=== PATIENT | male | born 1980 | race Caucasian/White ===

== ENCOUNTER 2018-03-29 10:53 | Emergency (ER) | payer BC ==
[~2018-03-29] VITALS: Ht 175.3 cm; Wt 73.9 kg
--- NOTE | 2018-03-29 11:10 | NUR ---
Patient discharged to home in stable conditon. Written and verbal after care instructions given to patient. Patient verbalizes understanding of instructions.
== END 2018-03-29 11:12 | disposition home or self-care (01) ==
LOC: ER 10:53
DX: R42 Dizziness and giddiness (principal); Z88.1 Allergy status to other antibiotic agents
CPT/HCPCS: A4663